=== PATIENT | male | born 1960 | race Caucasian/White ===

== ENCOUNTER 2016-09-22 09:13 | Emergency (ER) | payer OTHER ==
[~2016-09-22] VITALS: Wt 88.0 kg
[~2016-09-22 09:13] MED LIST: GUAI-47 PO
[2016-09-22] MEDS ORDERED: LOSA25TA5 PO (10:52)
[2016-09-22] MEDS ORDERED: LEVO100T87 PO (10:52)
[2016-09-22] MEDS ORDERED: FENO145T19 PO (10:53)
[2016-09-22] MEDS ORDERED: LOSA100T7 PO (10:53)
[2016-09-22] MEDS ORDERED: FENO160T13 PO (10:54)
[2016-09-22] MEDS ORDERED: LEVO125T75 PO (10:54)
--- NOTE | 2016-09-22 11:51 | RADRPT ---
PROCEDURE: XR Chest. CLINICAL INDICATION: Pain, altered mental status TECHNIQUE: 2 AP views of the chest were obtained COMPARISON: Chest x-ray dated 08/19/2015 FINDINGS: No focal airspace opacification, pleural effusion or pneumothorax is seen. The cardiomediastinal si lhouette is within normal limits for size. The osseous structures are unremarkable. IMPRESSION: No radiographic evidence of acute cardiopulmonary disease. No significant interval change. RPTAT: HH .Elena Mckeon MD, MD Date Time Electronically viewed and signed by .Elena Mckeon MD, MD on 09/22/2016 11:51 .G/
--- NOTE | 2016-09-22 12:20 | RADRPT ---
PROCEDURE: CT Cervical Spine without contrast. CLINICAL INDICATION: Trauma. Syncope. Neck pain. TECHNIQUE: Helical axial sections were obtained through the cervical spine without intravenous con trast enhancement. Sagittal and coronal reformatted images were accomplished using the data from th e axial images. Total exam DLP is 495.93 mGy-cm. CTDIvol is 22.24 mGy. One or more of the followi ng dose reduction techniques were used: Automated exposure control, adjustment of the mA and/or kV a ccording to patient size, use of iterative reconstruction technique. COMPARISON: No prior studies are available for comparison. FINDINGS: There is normal stature and alignment of the vertebrae. There is no fracture. There are degenerative changes with disk space narrowing and osteophytes at C3-4. The disk height i s otherwise normal. There is no lytic or blastic lesion. The paravertebral soft tissues are normal. IMPRESSION: 1. Degenerative changes at C3-4. 2. Otherwise unremarkable images of the cervical spine. RPTAT: QQ .Alex Kendrick MD, MD Date Time Electronically viewed and signed by .Alex Kendrick MD, on 09/22/2016 12:19 .R/
--- NOTE | 2016-09-22 12:23 | RADRPT ---
PROCEDURE: CT Brain without contrast. CLINICAL INDICATION: Headache. Syncope. Altered mental status. TECHNIQUE: A CT of the brain without contrast was performed utilizing axial sections from the skul l base through the vertex. The patient was scanned without intravenous contrast enhancement. Sagitta l and coronal reformatted images were obtained using the data from the axial images. Total exam DLP is 630.20 mGy-cm. CTDIvol is 44.33 mGy. One or more of the following dose reduction techniques we re used: Automated exposure control, adjustment of the mA and/or kV according to patient size, use o f iterative reconstruction technique. COMPARISON: None available FINDINGS: There is normal aguilar-white matter differentiation. The ventricles and cisterns are normal. There is no intracranial hemorrhage or space-occupying lesion. There is no skull fracture or lytic lesion. IMPRESSION: 1. Normal noncontrast CT scan of the brain. 2. No intracranial hemorrhage. RPTAT: QQ .Alex Kendrick MD, MD Date Time Electronically viewed and signed by .Alex Kendrick MD, on 09/22/2016 12:23 .R/
[2016-09-22 12:59] LABS: ADD SCAN DIFF NO
[2016-09-22 13:11] LABS: INR 0.99; PROTIME 13.1 Sec (12.2-14.2)
[2016-09-22 13:12] LABS: PARTIAL THROMBOPLASTIN TIME 26.6 Sec (25.0-35.0)
[2016-09-22 13:15] LABS: ALANINE AMINOTRANSFERASE 53 IU/L (13-69); ALBUMIN 4.4 g/dl (3.3-4.9); ALBUMIN/GLOBULIN RATIO 1.41; ALKALINE PHOSPHATASE 47 IU/L (42-121); ANION GAP 11 (8-16); ASPARTATE AMINO TRANSFERASE 38 IU/L (15-46); BILIRUBIN,INDIRECT 0.2 mg/dl (0-1.1); BILIRUBIN,TOTAL 0.2 mg/dl (0.2-1.3); BLOOD UREA NITROGEN 19 mg/dl (7-20); CALCIUM 9.1 mg/dl (8.4-10.2); CARBON DIOXIDE 26 mmol/L (21-31); CHLORIDE 105 mmol/L (97-110); CREATINE KINASE 296 IU/L (23-200); CREATININE 1.16 mg/dl (0.61-1.24); GLUCOSE 80 mg/dl (70-220); POTASSIUM 4.2 mmol/L (3.5-5.1); SODIUM 138 mmol/L (135-144); TOTAL PROTEIN 7.5 g/dl (6.1-8.1)
[2016-09-22 13:28] LABS: CK-MB 1.96 ng/ml (0.0-2.4); TROPONIN-I < 0.012 ng/ml (0.00-0.12)
[2016-09-22] MEDS ORDERED: morphine 2 MG INJ IV STA (13:57)
[2016-09-22] MEDS ORDERED: SOD CHLORIDE 0.9% 500 ML IV STA (13:57)
[2016-09-22] MEDS ORDERED: DICLOFENAC SODIUM 37.5 MG/ML VIAL IV STA (13:57)
[2016-09-22] MEDS ORDERED: ONDANSETRON 4 MG INJ IV STA (13:57)
--- NOTE | 2016-09-22 14:03 | ERD ---
ER Documentation Chief Complaint Date/Time DATE: 09/22/16 TIME: 13:58 Chief Complaint c/o head, neck pain s/p fall yest morning from weakness w +ko HPI This is a very pleasant 56-year-old male with a history of hypertension. The patient indicates that over the past 24 hours he has had generalized myalgias, decrease in appetite and yesterday went home from work around lunchtime due to these symptoms. He indicated he had not eaten anything for the entire day and felt lightheaded and dizzy. Indicated that he had a mechanical trip and fall at the onset of dizziness and landed on the right side of his head onto the carpeted floor. He indicated he did have a brief loss of consciousness when he hit his head that lasted only several seconds. The patient indicated he had no headache or neck pain at that time. However upon awakening this morning he stated he felt that his right side of his neck was very sore with pain over the right side of his head where he had hit the carpeted surface. The patient states this is not the worst of his life. He has had no tactile fever shaking or chills. He denies any weakness of his upper or lower extremities. He has no shortness of breath at rest or exertion. He denies any chest pain or pressure that radiates to the neck arm back or jaw ROS All systems reviewed and are negative except as per history of present illness. Medications Home Meds Reported Medications Fenofibrate, Micronized* (Fenofibrate*) 160 Mg Tablet, 160 MG PO DAILY, TAB 09/22/16 Levothyroxine Sodium* (Levothyroxine Sodium*) 125 Mcg Tablet, 125 MCG PO BEFORE BREAKFAST, #30 TAB 09/22/16 Losartan Potassium* (Losartan Potassium*) 100 Mg Tablet, 100 MG PO DAILY, TAB 09/22/16 Discontinued Reported Medications Fenofibrate Nanocrystallized* (Fenofibrate*) Unknown Strength Tablet, PO DAILY, TAB 09/22/16 Losartan Potassium* (Losartan Potassium*) Unknown Strength Tablet, PO DAILY, TAB 09/22/16 Levothyroxine Sodium* (Levothyroxine Sodium*) Unknown Strength Tablet, PO BEFORE BREAKFAST, #30 TAB 09/22/16 Discontinued Scripts Guaifenesin-Dextromethorphan* (Mucinex* DM) 600-30 Mg Tabsr, 2 TAB PO BID for 10 Days, TAB Prov:NATHANIEL CASILLAS I. [employer] 08/19/15 Allergies Allergies: Coded Allergies: No Known Allergy (Unverified , 08/19/15) PMhx/Soc History of Surgery: No Anesthesia Reaction: No Hx Respiratory Disorders: No Hx Cardiac Disorders: Yes (HTN) Hx Psychiatric Problems: No Hx Miscellaneous Medical Probl: Yes (THYROID) Hx Alcohol Use: No Hx Substance Use: No Hx Tobacco Use: No Smoking Status: Never smoker Physical Exam Vitals Vital Signs Date Time Temp Pulse Resp B/P Pulse Ox O2 Delivery O2 Flow Rate FiO2 09/22/16 12:47 98.0 69 20 119/82 99 09/22/16 09:17 97.3 78 20 131/87 99 Physical Exam Constitutional:Well-developed. Well-nourished. HEENT:Normocephalic. Atraumatic.Pupils were equal round reactive to light. Moist mucous membranes.No tonsillar exudates. Right parietal scalp hematoma. Transparent rhinorrhea. Funduscopy exam showed sharp optic disc bilaterally and venous pulsations are present Neck: No nuchal rigidity. No lymphadenopathy. Posterior cervical spine tenderness over C3 and C4 and no step-offs. No nuchal rigidity. Tenderness over the right sternocleidomastoid with no expanding neck hematoma Respiratory: Not using accessory muscles of respiration.Lungs were clear to auscultation bilaterally. No rhonchi. No rales. No wheezing. Cardiovascular: Regular rate regular rhythm.No murmurs. No rubs were appreciated.S1, S2 normal. Distal pulses are palpable 2+ bilaterally. GI: Abdomen was soft. Nontender. Non Distended. No pulsatile abdominal masses or bruits. No rebound. No guarding. Bowel sounds were present and normal. Muscle skeletal: Full range of motion of both the upper and lower extremities bilaterally.Normal muscle tone.No assymetrical calf tenderness or swelling. Skin: No petechia, no purpura. No lesions on the palms or the soles of the feet. No maculopapular rash. NEURO: Patient was alert, awake, orientated x3.No facial droop. Gait observed and normal with no ataxia.Speech had regular rate and rhythm. No focal neurological deficits. Result Diagram: 09/22/16 1245 09/22/16 1245 Results 24 hrs Laboratory Tests Test 09/22/16 12:45 White Blood Count 8.610^3/ul Red Blood Count 5.0810^6/ul Hemoglobin 15.0g/dl Hematocrit 45.3% Mean Corpuscular Volume 89.2fl Mean Corpuscular Hemoglobin 29.5pg Mean Corpuscular Hemoglobin Concent 33.1g/dl Red Cell Distribution Width 12.7% Platelet Count 68940^3/UL Mean Platelet Volume 11.1fl Neutrophils % 39.3% Lymphocytes % 48.3% Monocytes % 7.3% Eosinophils % 4.0% Basophils % 0.5% Nucleated Red Blood Cells % 0.0/100WBC Neutrophils # 3.410^3/ul Lymphocytes # 4.210^3/ul Monocytes # 0.610^3/ul Eosinophils # 0.310^3/ul Basophils # 0.010^3/ul Nucleated Red Blood Cells # 0.010^3/ul Prothrombin Time 13.1Sec Prothrombin Time Ratio 1.0 INR International Normalized Ratio 0.99 Activated Partial Thromboplast Time 26.6Sec Sodium Level 138mmol/L Potassium Level 4.2mmol/L Chloride Level 105mmol/L Carbon Dioxide Level 26mmol/L Anion Gap 11 Blood Urea Nitrogen 19mg/dl Creatinine 1.16mg/dl Glucose Level 80mg/dl Calcium Level 9.1mg/dl Total Bilirubin 0.2mg/dl Direct Bilirubin 0.00mg/dl Indirect Bilirubin 0.2mg/dl Aspartate Amino Transf (AST/SGOT) 38IU/L Alanine Aminotransferase (ALT/SGPT) 53IU/L Alkaline Phosphatase 47IU/L Creatine Kinase 296IU/L Creatine Kinase Index 0.7 Creatinine Kinase MB (Mass) 1.96ng/ml Troponin I < 0.012ng/ml Total Protein 7.5g/dl Albumin 4.4g/dl Globulin 3.10g/dl Albumin/Globulin Ratio 1.41 Current Medications Medications (Trade) Dose Ordered Sig/Chandra Route PRN Reason Start Time Stop Time Status Last Admin Dose Admin Diclofenac Sodium 37.5 mg 37.5 mg ONCE STAT IV 09/22/16 13:57 09/22/16 14:00 DC Sodium Chloride (NS) 500 ml @ 500 mls/hr Q1H STAT IV 09/22/16 13:57 09/22/16 14:56 Morphine Sulfate (morphine) 2 mg ONCE STAT IV 09/22/16 13:57 09/22/16 14:00 DC Ondansetron HCl (Zofran Inj) 4 mg ONCE STAT IV 09/22/16 13:57 09/22/16 14:00 DC Procedures/MDM This patient presented to the emergency department after he experienced a mechanical fall with headache and neck pain. The patient indicated he did not have a syncope episode as he felt dizzy and unsteady which resulted in his fall. He did state however that when he hit his head he had a slight loss of consciousness. CT scan of the patient's head and neck showed no acute intracerebral hemorrhage mass-effect or midline shift. My clinical suspicion was low for meningitis or subarachnoid hemorrhage. Given that the patient had an acute single headache that presented within hours of onset my differential diagnosis included but was not limited to meningitis, SAH, intracerebral hemorrhage, hypertensive encephalopathy, cranial artery dissection, cerebral venous sinus thrombosis, traumatic, acute sinusitis. The patient has no ocular symptoms to suggest temporal neuritis, acute narrow-angle glaucoma or pituitary apoplexy. The patient did not appear to have a toxic or metabolic etiology such as fever, hypoglycemia, high-altitude disease or carbon monoxide poisoning. This was not the patients worse headache of their life. The patient had a complete neurologic and fundoscopic exam performed by myself that was normal with no focal neurological deficits or retinal hemorrhage. The patient stated this headache was not severe or distinct from other headaches and the history with the physical exam findings did not likely suggest SAH. Therefore, I did not feel it was clinically necessary to perform a lumbar puncture and CSF analysis. I did feel the patient's symptoms were result of an acute concussion and likely a viral etiology that was causing his myalgias. There is no electrolyte abnormalities. 12 Lead EKG tracing ordered and reviewed by myself showed: Normal sinus rhythm of 68 bpm and no arrhythmia. VA interval normal. QRS duration normal. No ST segment elevation No ST segment depression. No changes consistent with acute ischemia. The patient received IV morphine Toradol and Zofran with complete resolution of his headache. The patient was discharged home in fair condition. They were instructed to return to the emergency department at any time if there was any worsening of their condition. The patient stated they would follow up with their PCP in the next 24-48 hours to initiate a suitable medication regimen under the care of their PCP as well as to allow their PCP to monitor any drug reactions. The patient was discharged home with prescriptions after they gave informed consent to the new medication. They were also fully informed by myself on the adverse effects and adverse drug interactions in order to provide adequate safeguards to prevent possible adverse reactions to medications. Departure Diagnosis: Primary Impression: Myalgia Additional Impressions: Concussion Encounter type: initial encounter Loss of consciousness presence/duration: with LOC of unspecified duration Qualified Code: S06.0X9A - Concussion, with LOC of unspecified duration, initial encounter Sprain of cervical neck Encounter type: initial encounter Qualified Code: S13.9XXA - Sprain of cervical neck, initial encounter Condition: Serious JAMES SCALES Sep 22, 2016 14:03
[2016-09-22 14:07] LABS: BASOPHILS % 0.5 % (0.0-2.0); EOSINOPHILS # 0.3 10^3/ul (0.0-0.5); HEMATOCRIT 45.3 % (42.0-52.0); LYMPHOCYTES # 4.2 10^3/ul (0.8-2.9); LYMPHOCYTES % 48.3 % (15.0-51.0); MEAN CORPUSCULAR HEMOGLOBIN 29.5 pg (29.0-33.0); MEAN CORPUSCULAR HGB CONC 33.1 g/dl (32.0-37.0); MEAN CORPUSCULAR VOLUME 89.2 fl (82.0-101.0); MEAN PLATELET VOLUME 11.1 fl (7.4-10.4); MONOCYTE # 0.6 10^3/ul (0.3-0.9); MONOCYTES % 7.3 % (0.0-11.0); NEUTROPHIL # 3.4 10^3/ul (1.6-7.5); NEUTROPHILS % 39.3 % (39.0-77.0); PLATELET COUNT 186 10^3/UL (140-415); RED BLOOD COUNT 5.08 10^6/ul (4.70-6.10); RED CELL DISTRIBUTION WIDTH 12.7 % (11.5-14.5); WHITE BLOOD COUNT 8.6 10^3/ul (4.8-10.8)
[2016-09-22 14:47] VITALS: BP 121/69; PULSE 70; RESP 20; TEMP 98
[2016-09-22] MEDS ORDERED: IBUP800T25 PO (14:59)
== END 2016-09-22 16:20 | disposition home or self-care (01) ==
LOC: E/R 09:13
DX: M79.1 Myalgia (principal); S06.0X9A Concussion with loss of consciousness of unspecified duration, initial encounter; S13.9XXA Sprain of joints and ligaments of unspecified parts of neck, initial encounter; I10 Essential (primary) hypertension; R41.82 Altered mental status, unspecified; W01.0XXA Fall on same level from slipping, tripping and stumbling without subsequent striking against object, initial encounter; Y92.9 Unspecified place or not applicable
CPT/HCPCS: 70450; 71010; 72125; 80053; 82550; 82553; 84484; 85025; 85610; 85730; 93005; 96374; 96375; J2270; J2405; J7040; Z7502; Z7610